=== PATIENT | male | born 1975 | race Caucasian/White ===

== ENCOUNTER → 2018-03-22 | Day surgery (SDC) | payer OTHER ==
[~2018-03-22] MED LIST: CITA20TA9 PO; HYDROmorphone 2 MG/ML VIAL IV PRN; IV RINGERS,LACTATED 1000ML 1,000 ML IV SCH; LIDOCAINE 1% PF 2 ML VIAL. ID PRN; LIDOCAINE 1% PF 2 ML VIAL. ONE; MORPHINE SULFATE 2 MG/ML VIAL. IV PRN; OMEP20TA63 PO; PROCHLORPERAZINE 10 MG/2 ML VIAL. IV PRN; PROPOFOL 20 ML IV ONE; fentaNYL PF VIAL 100 MCG/2 ML VIAL IV PRN
[2018-03-22 07:51] VITALS: BP 135/85
== END | disposition home or self-care (01) ==
LOC: ENDOS 05:59
PROVIDERS: ATTEND Internal Medicine Gastroenterology
DX: K20.0 Eosinophilic esophagitis (principal); K22.8 Other specified diseases of esophagus; Z91.018 Allergy to other foods; F41.9 Anxiety disorder, unspecified; K21.9 Gastro-esophageal reflux disease without esophagitis; J45.909 Unspecified asthma, uncomplicated; F32.9 Major depressive disorder, single episode, unspecified; Z72.89 Other problems related to lifestyle; Z79.899 Other long term (current) drug therapy; Z98.890 Other specified postprocedural states; Z98.52 Vasectomy status
CPT/HCPCS: 43235; 43450; J2704